=== PATIENT | female | born 1985 | race Caucasian/White ===

== ENCOUNTER 2019-09-12 10:42 | Day surgery (SDC) | payer SELFPAY ==
[2019-09-12] MEDS ORDERED: MORPHINE 4 MG/ML SYR ONE (11:15)
[2019-09-12] MEDS ORDERED: METOCLOPRAMIDE 10 MG/2mL INJ ONE (11:16)
[2019-09-12] MEDS ORDERED: DIPHENHYDRAMINE 50 MG/ML VIAL ONE (11:16)
[2019-09-12] MEDS ORDERED: NA CHLORIDE 0.9% 1,000 ML ONE (11:16)
[2019-09-12 11:33] LABS: Absolute Lymphocytes (CBC) 2.4 K/uL (0.7-4.9); Basophils % 0.6 % (0-1.3); Hematocrit 36.6 % (36.0-45.0); Lymphocytes % 21.3 % (15.3-44.8); MPV 8.5 fL (7.6-11.3); RBC Red Blood Cell Count 4.27 M/uL (3.86-4.86)
--- OUTSIDE RECORDS SUMMARY | 2019-09-12 11:44 | XMS REPORT | Encounter Summary ---
:1985 Author Care Team Providers Name Role Phone Justin Conteh Shuttle Bus Driver [phone] Reason for Visit Well woman exam Instructions 1. Gynecologic examination CT + NG DNA, PCR, cervical pap test, thinprep, cervical urinalysis, dipstick 2. Menorrhagia Mononessa (28) 0.25 mg-35 mcg tablet 3. Depressive disorder Wellbutrin XL 150 mg 24 hr tablet, extended release 4. Bacterial vaginosis [place], vaginal Flagyl 500 mg tablet 5. Family history of malignant neoplasm of breast in first degree relative Discussion Note Pap, GC/CT done. She plans next mammogram in one year because her insurance does not cover mammograms until she is older (possibly 35 or 40). Advised avoidance of tobacco, alcohol, and drugs . Encouraged good nutrition, regular exercise, and ideal body weight. Discussed treatment of depression. Patient educational handouts: No information available. Plan of Care Reminders Provider Appointments Follow up Justin Conteh MD 06/25/2019 3:30PM Lab [place], In-House Results Vaginal 06/04/2019 CT + NG DNA, [facility] PCR, Cervical 06/04/2019 [facility] (Lab) Pap Test, [facility] Thinprep, Cervical 06/04/2019 [facility] (Lab) Urinalysis, In-House Results Dipstick 06/04/2019 Referral None recorded. Procedures None recorded. Surgeries None recorded. Imaging None recorded. Medications Name Start Date Flagyl 500 mg tablet Take 1 tablet twice a day by oral route for 7 days. Mononessa (28) 0.25 mg-35 mcg tablet Take 1 tablet every day by oral route. Wellbutrin XL 150 mg 24 hr tablet, extended release Take 1 tablet every day by oral route. Medications Administered None recorded. Vitals Height Weight BMI Blood Pressure 5 ft 4 in 294.4 lbs 50.5 kg/m2 150/87 mm[Hg] Lab Results Date Name Specimen Result Interpretation Description Value Range Status Address 06/04/2019 Urinalysis, Leukocytes Trace In-House Dipstick Results: For Internal Use Only Nitrite negative In-House Results: For Internal Use Only Urobilinogen .2 In-House Results: For Internal Use Only Protein Negative In-House Results: For Internal Use Only Ph 5.5 In-House Results: For Internal Use Only Blood Negative In-House Results: For Internal Use Only Specific 1.030 In-House [place] Results: For Internal Use Only Ketone Negative In-House Results: For Internal Use Only Bilirubin Small In-House Results: For Internal Use Only Glucose Negative In-House Results: For Internal Use Only Appearance Clear In-House Results: For Internal Use Only Color Yellow In-House Results: For Internal Use Only [place], Clue Cells positive In-House Vaginal Results: For Internal Use Only Wbcs negative In-House Results: For Internal Use Only Trichomonads negative In-House Results: For Internal Use Only Epithelial abnormal In-House Cells Results: For Internal Use Only Rbcs positive In-House Results: For Internal Use Only Allergies Code Code System Name Reaction Severity Status Onset NKDA Problems Name Status Onset Date Source Menorrhagia Active 10/27/2016 Family History of Malignant Neoplasm of Active 05/11/2018 Breast in First Degree Relative Morbid Obesity Active Encounter Pharyngitis Active Encounter Sinusitis Active Encounter Allergic Rhinitis Active Encounter Oligomenorrhea Active Encounter Fatigue Active Encounter HPV - Human Papillomavirus Test Positive Active Encounter Procedures Date Name Performed by 03/09/2010 Caesarean Section Information not available 09/11/2009 Tubal Ligation Information not available 03/31/2009 Caesarean Section Information not available Vaccine List Vaccine Type influenza, seasonal, injectable 06/11/2014 Tdap 09/11/2009 Social History Tobacco Smoking Status Never Smoker Past Encounters 06/04/2019 Gynecologic Examination; Menorrhagia; Depressive Disorder; Bacterial Vaginosis ; Family History of Malignant Neoplasm of Breast in First Degree Relative Justin oCnteh MD: [address] [place] [address] [address], [place] [address], Ph. [phone] History of Present Illness Note: Well woman visit. 33 y/o , taking OCs for menorrhagia with good control, c/o depression, worse for the past several months - her had an affair; she requests STD testing. She has a history of paps [id number] with + HPV and negative colposcopy. History of menorrhagia and dysfunctional uterine bleeding, well controlled with OCs. History of first degree relative (mother) with premenopausal breast cancer (BRCA negative). She started annual mammogram screening in 2016 at age 30. Review of Systems HOSPITAL COOK ROS Reported By: Patient Constitutional: Constitutional: no fever, no significant weight loss, fatigue, weight gain (30lbs) Skin: Skin: no abnormal moles, no rashes Eyes: Eyes: no irritation, no vision changes ENMT: ENMT: no hearing loss, no ear pain, no nose/sinus problems, no sore throat, no snoring, no dry mouth, no mouth ulcers Respiratory: Respiratory: no dyspnea / shortness of breath, no cough, no sputum production, no hemoptysis, no wheezing Cardiovascular: Cardiovascular: no chest pain, no palpitations, no orthopnea Gastrointestinal: Gastrointestinal: no heartburn, no dysphagia, no nausea, no vomiting, no abdominal pain, no bowel movement changes, no diarrhea, no constipation, no rectal bleeding Genitourinary: Genitourinary: no hematuria, no abnormal bleeding, no flank pain, no trouble urinating, no incontinence, no rash, no lesion, no discharge, no vaginal odor, no vaginal itching Endocrine: Menstrual: no menstrual problems, no PMDD symptoms. Menopausal: no menopausal symptoms. Sexual: no sexual problems Musculoskeletal: Musculoskeletal: no muscle aches, no muscle weakness, no arthralgias/joint pain, no back pain Neurological: Neurologic: no headaches, no dizziness, no LOC, no weakness, no numbness, no seizures Psychological: Psych: no alcoholism, no sleep disturbances, depression Physical Exam Annual Computer Numerical Control Operator Reported By: Patient In House Counsel: In House Counsel: present Constitutional: General Appearance: healthy-appearing, well-nourished, well-developed Psychiatric: Orientation: to time, to place, to person. Mood and Affect: active and alert, normal mood, normal affect Skin: Appearance: no rashes, no lesions Neck: Neck: supple, trachea midline, no masses, FROM. Thyroid: no enlargement, no nodules, non-tender Lungs: Respiratory Effort: no intercostal retractions, no accessory muscle usage. Auscultation: clear to auscultation, no wheezing, no rales/crackles, no rhonchi Cardiovascular: Auscultation: RRR, no murmur. Peripheral Vascular: no LLE edema, no RLE edema, no varicosities, no calf tenderness, no palpable cords, pedal pulses intact Abdomen: Auscultation/Inspection/Palpation: soft, non-distended, no tenderness, no hepatomegaly, no splenomegaly, no masses. Hernia: none palpated Breast: Inspection/Palpation: no skin changes, no abnormal secretions, nipple appearance normal, no tenderness, no distinct masses Female Genitalia: Vulva: no masses, no atrophy, no lesions. Vagina: no tenderness, no erythema, no vesicle(s) or ulcers, no cystocele, no rectocele, abnormal vaginal discharge. Cervix: no discharge, no cervical motion tenderness, friable, sample taken for a Pap smear. Uterus: normal size, normal shape, midline, no uterine prolapse, mobile, non-tender. Bladder/Urethra: normal meatus, no urethral discharge, no urethral mass, bladder non distended. Adnexa/Parametria: no parametrial tenderness, no parametrial mass, no adnexal tenderness, no ovarian mass Lymph Nodes: Palpation: non tender submandibular nodes, non tender axillary nodes, non tender inguinal nodes Rectal Exam: Rectum: normal perianal skin, no hemorrhoids
--- OUTSIDE RECORDS SUMMARY | 2019-09-12 11:44 | XMS REPORT | Encounter Summary ---
:1985 Author Care Team Providers Name Role Phone Justin Yady Head Sawyer [phone] Reason for Visit Follow Up Visit Instructions 1. Depressive disorder Wellbutrin XL 300 mg 24 hr tablet, extended release Discussion Note: None recorded.Patient educational handouts: No information available. Plan of Care Reminders Provider Appointments Follow up 07/16/2019 Justin Conteh, 3:45PM MD Lab None recorded. Referral None recorded. Procedures None recorded. Surgeries None recorded. Imaging None recorded. Medications Name Start Date bupropion HCl XL 150 mg 24 hr tablet, extended release Take 1 tablet every day by oral route. Femynor 0.25 mg-35 mcg tablet Take 1 tablet every day by oral route. Wellbutrin XL 300 mg 24 hr tablet, extended release Take 1 tablet every day by oral route. Medications Administered None recorded. Vitals Height Weight BMI Blood Pressure 5 ft 4 in 278.6 lbs 47.8 kg/m2 139/81 mm[Hg] Results Lab Results Date Name Specimen Result Interpretation Description Value Range Status Address 06/05/2019 CT + NG Results Final [place] DNA, PCR, [facility] (Lab): [address] [place] [address] 06/05/2019 Pap Test, Results Final [place] Thinprep, [facility] (Lab): [address] [place] [address] 06/04/2019 Urinalysis, Leukocytes Trace In-House Dipstick Results: For Internal Use Only Nitrite negative In-House Results: For Internal Use Only Urobilinogen .2 In-House Results: For Internal Use Only Protein Negative In-House Results: For Internal Use Only Ph 5.5 In-House Results: For Internal Use Only Blood Negative In-House Results: For Internal Use Only Specific 1.030 In-House [place] Results: For Internal Use Only Ketone Negative [...] Tobacco Smoking Status Never Smoker Past Encounters 06/25/2019 Depressive Disorder Justin Conteh MD: [address] [address], Ph. [phone] 06/04/2019 Gynecologic Examination; Menorrhagia; Depressive Disorder; Bacterial Vaginosis ; Family History of Malignant Neoplasm of Breast in First Degree Relative Justin Conteh MD: [address] [facility], [place] [address], Ph. [phone] History of Present Illness Note: Follow up visit. Started Wellbutrin XL 150 mg three weeks ago for depression. Her symptoms have improved, without side effects. She still is feeling better but still has some bothersome symptoms. Review of Systems LYE MACHINE OPERATOR ROS Reported By: Patient Constitutional: Constitutional: no [...] alcoholism, no sleep disturbances, depression Physical Exam None recorded.
[2019-09-12 11:49] LABS: Urine Blood TRACE (NEG); Urine Glucose NEGATIVE (NEG); Urine Protein NEGATIVE (NEG); Urine Specific Gravity 1.025 (1.005-1.030); Urine pH 5.5 (5.0-7.0)
[2019-09-12 11:51] LABS: ALT/SGPT 32 U/L (12-78); AST/SGOT 16 U/L (15-37); Alkaline Phosphatase 74 U/L (45-117); BUN Blood Urea Nitrogen 12 mg/dL (7-18); Bicarbonate 25 mmol/L (21-32); Bilirubin Direct < 0.1 mg/dL (0-0.2); Bilirubin Total 0.3 mg/dL (0.2-1.0); Glucose Level 107 mg/dL (74-106); Lipase 87 U/L (73-393); Potassium 3.7 mmol/L (3.5-5.1); Protein, Total 7.5 g/dL (6.4-8.2); Sodium Level 138 mmol/L (136-145)
[2019-09-12] MEDS ORDERED: FENTANYL CITR 100 MCG/2 ML ONE ×3 (12:09→16:04)
--- NOTE | 2019-09-12 12:10 | RAD REPORT ---
EXAM DESCRIPTION: US - Abdomen Exam Limited - 09/12/2019 11:46 am CLINICAL HISTORY: Abdominal pain. COMPARISON: None. FINDINGS: Multiple gallstones. Gallbladder wall measures 8 millimeters. Questionable small amount of pericholecystic fluid. The biliary tree is normal caliber. IMPRESSION: Cholelithiasis. Thickened gallbladder wall likely indicating cholecystitis. Questionable small amount pericholecystic fluid
--- NOTE | 2019-09-12 12:28 | ER ---
Nurse's Notes [facility] [place], [place] Name: Rima Hodge Age: 34 yrs Sex: Female : 1985 Arrival Date: 09/12/2019 Time: 10:42 Bed 8 Private MD: Diagnosis: Acute cholecystitis Presentation: 09/12 10:44 Presenting complaint: Patient states: RUQ pain, n/v started last night, hx gallstones. sv Transition of care: patient was not received from another setting of care. Onset of symptoms was September 11, 2019. Risk Assessment: Do you want to hurt yourself or someone else? Patient reports no desire to harm self or others. Care prior to arrival: None. 10:44 Method Of Arrival: Ambulatory sv 10:44 Acuity: DRE 2 sv 13:59 Initial Sepsis Screen: Does the patient meet any 2 criteria? No. Patient's initial aj1 sepsis screen is negative. Does the patient have a suspected source of infection? Yes: Acute abdominal pain. Historical: - Allergies: 10:45 No Known Allergies; sv - PMHx: 10:45 gallstones; sv - PSHx: 10:45 ; sv - Immunization history:: Adult Immunizations up to date. - Social history:: Smoking status: unknown. - Ebola Screening: : Patient denies travel to an Ebola-affected area in the 21 days before illness onset. Screenin:05 Abuse screen: Denies threats or abuse. Denies injuries from another. Nutritional aj1 screening: No deficits noted. Tuberculosis screening: No symptoms or risk factors identified. 13:59 Fall Risk None identified. aj1 Assessment: 11:05 General: Appears in no apparent distress. uncomfortable, Behavior is cooperative, aj1 restless. Pain: Complains of pain in right upper quadrant and epigastric area Pain does not radiate. Pain currently is 10 out of 10 on a pain scale. Quality of pain is described as burning, sharp, Pain began 8 hours ago. Neuro: Level of Consciousness is awake, alert, obeys commands, Oriented to person, place, time, situation. Cardiovascular: Patient's skin is warm and dry. Respiratory: Airway is patent Respiratory effort is even, unlabored, Respiratory pattern is regular, symmetrical. GI: Abdomen is non-distended, Bowel sounds present X 4 quads. Abd is soft X 4 quads Abdomen is tender to palpation in right upper quadrant and epigastric area Reports upper abdominal pain, nausea, vomiting. : No signs and/or symptoms were reported regarding the genitourinary system. EENT: No signs and/or symptoms were reported regarding the EENT system. Derm: No signs and/or symptoms reported regarding the dermatologic system. Skin is pink, warm \T\ dry. normal. Musculoskeletal: No signs and/or symptoms reported regarding the musculoskeletal system. Circulation, motion, and sensation intact. 12:05 Reassessment: Patient appears in no apparent distress at this time. No changes from aj1 previously documented assessment. Patient and/or family updated on plan of care and expected duration. Pain level reassessed. Patient is alert, oriented x 3, equal unlabored respirations, skin warm/dry/pink. Vital Signs: 10:45 BP 185 / 96; Pulse 78; Resp 22; Pulse Ox 100% ; Weight 131.54 kg; Height 5 ft. 4 in. sv (162.56 cm); 11:15 BP 150 / 74; Pulse 74; Resp 18; Pulse Ox 100% on R/A; aj1 12:15 BP 134 / 68; Pulse 78; Resp 18; Pulse Ox 100% on R/A; aj1 10:45 Body Mass Index 49.78 (131.54 kg, 162.56 cm) sv ED Course: 10:42 Patient arrived in ED. as 10:44 Triage completed. sv 10:45 Arm band placed on. sv 10:55 Luciano Schuler PA is PHCP. jm 10:55 Paul Shine MD is Attending Physician. [facility] 10:57 Adrian Rios, RN is Primary Nurse. bp 11:05 Patient has correct armband on for positive identification. aj1 11:05 No provider procedures requiring assistance completed. aj1 11:09 Ynacy Gonzales, RN is Primary Nurse. aj1 11:10 Initial lab(s) drawn, by wv, sent to lab. Inserted saline lock: 20 gauge in left aj1 antecubital area, using aseptic technique. Blood collected. 11:47 US Abdomen Limited In Process Unspecified. EDMS 12:26 Matt Tan MD is Hospitalizing Provider. [facility] 13:59 Patient admitted, IV remains in place. aj1 Administered Medications: 11:20 Drug: Reglan 10 mg Route: IVP; Site: right antecubital; aj1 13:45 Follow up: Response: No adverse reaction aj1 11:26 Drug: morphine 4 mg {Note: RASS score 1 patient is restless.} Route: IVP; Site: right aj1 antecubital; 13:45 Follow up: Response: No adverse reaction; RASS: Alert and Calm (0) aj1 11:27 Drug: NS 0.9% 1000 ml Route: IV; Rate: 1 bolus; Site: right antecubital; aj1 13:45 Follow up: IV Status: Completed infusion; IV Intake: 1000ml aj1 11:27 Drug: diphenhydrAMINE 12.5 mg Route: IVP; Site: right antecubital; aj1 13:45 Follow up: Response: No adverse reaction aj1 12:12 Drug: fentaNYL (PF) 25 mcg Route: IVP; Site: right antecubital; aj1 13:44 Follow up: Response: No adverse reaction; RASS: Alert and Calm (0) aj1 13:05 Drug: Cipro 400 mg Volume: 200 ml; Route: IVPB; Infused Over: 60 mins; Site: right aj1 antecubital; 13:44 Follow up: IV Status: Infusion continued upon admission aj1 13:06 Drug: Bentyl 20 mg Route: IM; Site: right deltoid; aj1 13:45 Follow up: Response: No adverse reaction aj1 13:06 Drug: Flagyl 500 mg Volume: 100 ml; Route: IVPB; Rate: 200 ml/hr; Infused Over: 30 aj1 mins; Site: right antecubital; 13:44 Follow up: IV Status: Infusion continued upon admission aj1 Intake: 13:45 IV: 1000ml; Total: 1000ml. aj1 Outcome: 12:27 Decision to Hospitalize by Provider. [facility] 13:59 Admitted to OR accompanied by nurse, via stretcher. aj1 13:59 Condition: good 13:59 Discharge instructions given to patient, Instructed on the need for admit, Demonstrated understanding of instructions. 13:59 Patient left the ED. aj1 Signatures: Dispatcher [employer] Yancy Tolbert RN RN aj1 Theodora Alonzo RN Luciano Adler PA PA jmm Martinez, Amelia as Peltier, Brian, RN RN bp Corrections: (The following items were deleted from the chart) 10:46 10:44 Acuity: DRE 3 sv sv
--- NOTE | 2019-09-12 12:29 | EDPHYS ---
Physician Documentation [facility] Name: Rima Hodge Age: 34 yrs Sex: Female : 1985 Arrival Date: 09/12/2019 Time: 10:42 Bed 8 Private MD: ED Physician Paul Shine HPI: 09/12 11:15 This 34 yrs old Female presents to ER via Ambulatory with complaints of jmm Abdominal Pain, Nausea/Vomiting. 11:15 The patient presents with abdominal pain in the epigastric area. Onset: The jmm symptoms/episode began/occurred acutely, today. The symptoms radiate to Modifying factors: The symptoms are alleviated by nothing. This is a 34 year old female with a history of gallstones that presents to the ED with complaints of worsening epigastric abdominal pain over the past 3 months. Patient states the pain intensified this morning with an episode of vomiting. Patient states she has taken zantac and ppi's with no relief. . Historical: - Allergies: 10:45 No Known Allergies; sv - PMHx: 10:45 gallstones; sv - PSHx: 10:45 ; sv - Immunization history:: Adult Immunizations up to date. - Social history:: Smoking status: unknown. - Ebola Screening: : Patient denies travel to an Ebola-affected area in the 21 days before illness onset. ROS: 11:15 Constitutional: Negative for fever, chills, and weight loss, Cardiovascular: Negative jmm for chest pain, palpitations, and edema, Respiratory: Negative for shortness of breath, cough, wheezing, and pleuritic chest pain. 11:15 Abdomen/GI: Positive for abdominal pain, nausea, vomiting. 11:15 All other systems are negative. Exam: 11:15 Constitutional: This is a well developed, well nourished patient who is awake, alert, jmm and in no acute distress. Head/Face: atraumatic. Eyes: EOMI, no conjunctival erythema appreciated ENT: Moist Mucus Membranes Neck: Trachea midline, Supple Chest/axilla: Normal chest wall appearance and motion. Cardiovascular: Regular rate and rhythm. No edema appreciated Respiratory: Normal respirations, no respiratory distress appreciated 11:15 Abdomen/GI: Inspection: abdomen appears normal, Bowel sounds: normal, Palpation: soft, mild abdominal tenderness, in the epigastric area and right upper quadrant. 11:15 Back: ROM is normal. 11:15 Musculoskeletal/extremity: ROM: intact in all extremities. 11:15 Skin: Appearance: Color: normal in color. 11:15 Neuro: Orientation: is normal, Mentation: is normal, Memory: is normal. 11:15 Psych: Behavior/mood is pleasant, cooperative. Vital Signs: 10:45 BP 185 / 96; Pulse 78; Resp 22; Pulse Ox 100% ; Weight 131.54 kg; Height 5 ft. 4 in. sv (162.56 cm); 11:15 BP 150 / 74; Pulse 74; Resp 18; Pulse Ox 100% on R/A; aj1 12:15 BP 134 / 68; Pulse 78; Resp 18; Pulse Ox 100% on R/A; aj1 10:45 Body Mass Index 49.78 (131.54 kg, 162.56 cm) sv MDM: 10:58 Patient medically screened. [facility] 12:25 Data reviewed: vital signs, nurses notes. Counseling: I had a detailed discussion with rosanna the patient and/or guardian regarding: the historical points, exam findings, and any diagnostic results supporting the discharge/admit diagnosis, lab results, radiology results, the need for further work-up and treatment in the hospital. ED course: I discussed the patient with Dr. Tan whom accepted admission. . 09/12 11:07 Order name: Urine Dipstick--Ancillary (enter results); Complete Time: 11:59 [facility] 09/12 11:07 Order name: Urine --Ancillary (enter results); Complete Time: 11:59 [facility] 09/12 11:07 Order name: Basic Metabolic Panel; Complete Time: 11:59 [facility] 09/12 11:07 Order name: CBC with Diff; Complete Time: 11:46 [facility] 09/12 11:07 Order name: Creatinine for Radiology; Complete Time: 11:59 [facility] 09/12 11:07 Order name: Hepatic Function; Complete Time: 11:59 [facility] 09/12 11:07 Order name: Lipase; Complete Time: 11:59 [facility] 09/12 12:36 Order name: Basic Metabolic Panel [facility] 09/12 12:36 Order name: Basic Metabolic Panel [facility] 09/12 12:36 Order name: CBC with Automated Diff [facility] 09/12 12:36 Order name: CBC with Automated Diff [facility] 09/12 12:36 Order name: Lipase [facility] 09/12 12:36 Order name: Lipase [facility] 09/12 12:36 Order name: Liver (Hepatic) Function [facility] 09/12 11:07 Order name: IV Saline Lock; Complete Time: 11:09 [facility] 09/12 11:07 Order name: Labs collected and sent; Complete Time: 11:09 [facility] 09/12 11:07 Order name: Urine Dipstick-Ancillary (obtain specimen); Complete Time: 11: [facility] 09/12 11:09 Order name: Urine Test (obtain specimen); Complete Time: 11:10 [facility] 09/12 11:09 Order name: US Abdomen Limited; Complete Time: 12:24 [facility] 09/12 12:36 Order name: NPO [facility] 09/12 12:36 Order name: Liver (Hepatic) Function [facility] Administered Medications: 11:20 Drug: Reglan 10 mg Route: IVP; Site: right antecubital; aj1 13:45 Follow up: Response: No adverse reaction aj1 11:26 Drug: morphine 4 mg {Note: RASS score 1 patient is restless.} Route: IVP; Site: right aj antecubital; 13:45 Follow up: Response: No adverse reaction; RASS: Alert and Calm (0) aj1 11:27 Drug: NS 0.9% 1000 ml Route: IV; Rate: 1 bolus; Site: right antecubital; aj1 13:45 Follow up: IV Status: Completed infusion; IV Intake: 1000ml aj1 11:27 Drug: diphenhydrAMINE 12.5 mg Route: IVP; Site: right antecubital; aj1 13:45 Follow up: Response: No adverse reaction aj1 12:12 Drug: fentaNYL (PF) 25 mcg Route: IVP; Site: right antecubital; aj1 13:44 Follow up: Response: No adverse reaction; RASS: Alert and Calm (0) aj1 13:05 Drug: Cipro 400 mg Volume: 200 ml; Route: IVPB; Infused Over: 60 mins; Site: right aj1 antecubital; 13:44 Follow up: IV Status: Infusion continued upon admission aj1 13:06 Drug: Bentyl 20 mg Route: IM; Site: right deltoid; aj1 13:45 Follow up: Response: No adverse reaction aj1 13:06 Drug: Flagyl 500 mg Volume: 100 ml; Route: IVPB; Rate: 200 ml/hr; Infused Over: 30 aj1 mins; Site: right antecubital; 13:44 Follow up: IV Status: Infusion continued upon admission aj1 Disposition: 16:31 Co-signature as Attending Physician, Paul Shine MD I agree with the assessment and kdr plan of care. Disposition: 09/12/19 12:27 Hospitalization ordered by Matt Tan for Observation. Preliminary diagnosis is Acute cholecystitis. - Bed requested for Telemetry/MedSurg (observation). - Status is Observation. aj1 - Condition is Stable. - Problem is new. - Symptoms have improved. UTI on Admission? No Signatures: Dispatcher [employer] EDMS Yancy Gonzales RN RN aj1 Theodora Alonzo RN RN sv Rittger, Kevin, MD MD [facility] Luciano Schuler PA PA jm Corrections: (The following items were deleted from the chart) 13:59 12:27 Hospitalization Ordered by Matt Tan MD for Observation. Preliminary diagnosis aj1 is Acute cholecystitis. Bed requested for Telemetry/MedSurg (observation). Status is Observation. Condition is Stable. Problem is new. Symptoms have improved. UTI on Admission? No. rosanna
[2019-09-12] MEDS ORDERED: ONDANSETRON 4 MG/2 ML VIAL IV PRN ×2 (12:30→16:37)
[2019-09-12] MEDS ORDERED: ACETAMINOPHEN 500 MG TAB PO PRN (12:30)
[2019-09-12] MEDS ORDERED: DICYCLOMINE HCL 20 MG/2 ML AMP IM ONE (12:56)
[2019-09-12] MEDS ORDERED: Ringers Lactate 1,000 ML IV ONE ×2 (13:42→15:57)
[2019-09-12] MEDS ORDERED: HYDROMORPHONE HCL 1 MG/ML INJ ONE (14:28)
[2019-09-12] MEDS ORDERED: PROMETHAZINE INJ 25 MG/ML AMP ONE (14:29)
[2019-09-12] MEDS ORDERED: dexAMETHasone 10 MG/ML VIAL ONE ×2 (14:36→15:01)
[2019-09-12] MEDS ORDERED: SCOPOLAMINE HYDROBROMIDE PATCH TD ONE ×2 (14:37→14:38)
[2019-09-12] MEDS ORDERED: propofoL 200 MG/20 ML VIAL IV ONE (15:01)
[2019-09-12] MEDS ORDERED: MIDAZOLAM HCL 2 MG/2 ML INJ ONE (15:01)
[2019-09-12] MEDS ORDERED: LIDOCAINE 2% MPF 5 ML VIAL ONE (15:01)
[2019-09-12] MEDS ORDERED: ROCURONIUM 50 MG/5 ML VIAL IV ONE (15:05)
[2019-09-12] MEDS ORDERED: SUCCINYLCHOLINE 20 MG/ML (10 ML) IV ONE (15:08)
--- NOTE | 2019-09-12 15:13 | PREOPHP ---
Date of Admission: 09/12/2019 Chief Complaint: Abdominal pain. History Of Present Illness: Patient is a 34-year-old female with 3 month history of biliary colic wh o presents with acute onset of right upper quadrant abdominal pain going to the back, associated with nausea, vomiting, no blood in her stool. No dysuria or hematuria. No sore throat, runny nose, coug h, headaches, dizziness. No chest pain. Review of Systems: Otherwise unremarkable. Past Medical History: Negative. Past Surgical History: . Allergies: NONE. Social History: Patient denies smoking or drinking. Family History: Significant for breast cancer in the mother. Physical Examination: Vital Signs: Stable. Blood pressure is a little bit high when she came in but that was secondary to pain. General: She is afebrile. She is awake, alert, oriented x3. Head and Neck: Cranial nerves 2 through 12 grossly within normal limits. No neck masses. No JVD. Throat clear. Neck is supple. Chest: Clear. Heart: S1, S2. Abdomen: Soft. Positive right upper quadrant tenderness. No rebound, rigidity, or guarding. Extremities: Adequately perfused. Nontender. Neuro: Nonfocal. Diagnostic Data: Shows ultrasound, cholelithiasis, thickened gallbladder wall likely indicating chol ecystitis, question small amount of pericholecystic fluid. Her white count is 11.5 with slight left shift. Her glucose is 107. LFTs and lipase are within normal limits. Assessment: Acute cholecystitis and cholelithiasis. Plan: Admit, n.p.o., IV fluid, IV antibiotics, to the OR for lap raphael, possible open. Patient unde rstands the risks, benefits, and alternatives and agrees to procedure. /MODL Voice ID: [id number]
[2019-09-12] MEDS ORDERED: GLYCOPYRROLATE 0.2 MG/ML SYR ONE (16:21)
[2019-09-12] MEDS ORDERED: NEOSTIGMINE 1 MG/ML -5 ML ONE (16:28)
--- NOTE | 2019-09-12 16:28 | P.OP ---
Model Maker Scale: Soraida HARGROVE Preoperative diagnosis: Acute Cholecystitis and Cholelithiasis Postoperative diagnosis: same Primary procedure: Lap Isis Anesthesia: Gen Estimated blood loss: min Specimen: GB Findings: as above Complications: None Transferred to: Recovery Room Condition: Good
[2019-09-12] MEDS ORDERED: HYDROMORPHONE HCL 1 MG/ML INJ IV PRN (16:37)
[2019-09-12] MEDS ORDERED: METRONIDAZOLE 500mg IVPB 500 MG/100 ML BAG IV SCH (17:00)
[2019-09-12] MEDS: HYDROMORPHONE HCL 1 MG/ML INJ ONE ×2 (17:07→17:12)
[2019-09-12] MEDS: HYDROCODONE/APAP 7.5/325 MG TAB PO PRN ×2 (17:44→22:03)
[2019-09-12] MEDS: D5 0.45 NS 1,000 ML IV SCH (17:48)
[2019-09-12 17:56] VITALS: BMI 49.8
[2019-09-12] MEDS: CIPROFLOXACIN 400mg IV 400 MG/200 ML BAG IV SCH (20:33)
--- NOTE | 2019-09-12 23:34 | OP ---
Date of Procedure: 09/12/2019 Surgeon: Matt Tan MD [employer]: DELVIN Peck. Preoperative Diagnosis: Acute cholecystitis and cholelithiasis. Postoperative Diagnosis: Acute cholecystitis and cholelithiasis. Procedure: Laparoscopic cholecystectomy. Estimated Blood Loss: Minimal. Specimen: Gallbladder. Findings: As above. Anesthesia: General. Complications: None. Patient tolerated the procedure in stable condition, taken to Recovery in good general condition. Description Of Procedure: Patient was brought to the OR, placed in supine position. General anesthe sylvester was begun. The patient was prepped and draped in usual sterile fashion. Marcaine 0.5% was infil trated locally. A 15-blade was used to make a 1 cm supraumbilical midline incision. Subcutaneous ti ssue was divided. The fascia was identified and divided. A #1 Vicryl stay suture was placed. Perit chiu cavity was entered with sharp and blunt dissection. A 12 mm trocar was placed into the periton eal cavity under direct vision. Pneumoperitoneum was established. Three 5 mm trocars were placed, 1 in the epigastrium just to the right of midline and 2 in the right subcostal region. Laparoscopy re vealed a distended gallbladder, which was aspirated of hydrops and then fundus was retracted superior ly. Infundibulum was identified and retracted inferolaterally. Cystic artery and cystic duct clearl y identified with blunt dissection. Clips placed. Both structures were divided. Cautery was used t o remove the gallbladder from the liver bed. Bleeding on the liver bed was controlled with cautery. The gallbladder was rather large and the umbilicus incision had to be extended slightly to allow for removal of the gallbladder. EndoCatch bag was used to retrieve the umbilicus after the incision was extended and gallbladder retrieved and sent to Pathology. Pneumoperitoneum reestablished and there was no evidence of bleeding or bile leakage appreciated. Effluent was clear. Subsequently, all troc ars were removed under direct vision. There was some bleeding noted at the epigastric trocar with 0 Vicryl Endo Close suture was used to stop that without any difficulty and subsequently all trocars we re removed and then #1 Vicryl was used to close the fascial defect at the umbilicus. Subcutaneous wo unds were irrigated. Bleeding controlled with cautery. A 3-0 chromic was used for subcutaneous tiss ue. April were used to close the skin. Sterile dressing was applied. Patient was awakened and ta cheryl to the recovery in good general condition. JI/MARYCRUZ Voice ID: [id number] Report ID: [id number]
[2019-09-13] MEDS: HYDROCODONE/APAP 7.5/325 MG TAB PO PRN ×2 (04:32→08:39)
[2019-09-13 06:12] LABS: Absolute Lymphocytes (CBC) 0.8 K/uL (0.7-4.9); Basophils % 0.2 % (0-1.3); Hematocrit 32.6 % (36.0-45.0); Lymphocytes % 7.1 % (15.3-44.8); MPV 8.4 fL (7.6-11.3); RBC Red Blood Cell Count 3.79 M/uL (3.86-4.86)
[2019-09-13 06:26] LABS: Potassium 4.3 mmol/L (3.5-5.1)
[2019-09-13 08:18] VITALS: BP 145/75; TEMP 98
[2019-09-13] MEDS: CIPROFLOXACIN 400mg IV 400 MG/200 ML BAG IV SCH (08:39)
[2019-09-13 08:50] LABS: Urine White Blood Cell Casts OK
[2019-09-13 08:51] LABS: Blood Morphology Comment NOT SEEN (NOT SEEN); Platelet Estimate ADEQ
[2019-09-13] MEDS: D5 0.45 NS 1,000 ML IV SCH (09:38)
[2019-09-13 10:53] VITALS: O2SAT 97
--- NOTE | 2019-09-13 23:57 | DS ---
Date of Discharge: 09/13/2019 Admitting Diagnosis: Acute cholecystitis and cholelithiasis. Discharge Diagnosis: Acute cholecystitis and cholelithiasis. Procedure Performed: Laparoscopic cholecystectomy. Hospital Course: The patient is a 34-year-old female, who underwent the aforementioned procedure. P ostoperatively, she is tolerating diet, ambulating. Pain controlled with p.o. pain medication, afebr ile, therefore patient will be discharged to home. Disposition: Home. Condition: Stable. Discharge Instructions: Resume home medications and diet. Activity as tolerated. No heavy lifting. Remove outer dressing in a.m. Shower. Keep wound clean and dry. Follow up in my office in 1 week . Call for appointment. Tylenol No. 3 one tablet p.o. q.4 p.r.n. pain, Cipro 500 mg p.o. q.12. /MODL Voice ID: [id number] Report ID: [id number]
== END 2019-09-13 12:29 | disposition home or self-care (01) ==
LOC: ER 10:42 → DS 12:44 → 2ND 14:55 → DS 09-13 12:29
PROVIDERS: ATTEND Surgery
PROC: 0FT44ZZ Resection of Gallbladder, Percutaneous Endoscopic Approach (ICD-10-PCS; principal; 2019-09-12 14:30)
DX: K80.12 Calculus of gallbladder with acute and chronic cholecystitis without obstruction (principal); E66.9 Obesity, unspecified; Z68.42 Body mass index [BMI] 45.0-49.9, adult; Z80.3 Family history of malignant neoplasm of breast
CPT/HCPCS: 36415; 76705; 80048; 80076; 81003; 81025; 83690; 85025; 88304; 96361; 96365; 96372; 96375; 99285; J0330; J0500; J0744; J1100; J1170; J1200; J2250; J2405; J2550; J2704; J2710; J2765; J3010; J7030; J7120; J7799